=== PATIENT | male | born 1970 | race African-American/Black ===

== ENCOUNTER 2017-09-16 18:20 | Emergency (ER) | payer BC ==
[~2017-09-16 18:20] MED LIST: ISOVUE-370 76%-LOCM 1 ML ONE
[2017-09-16 19:03] LABS: #Eosinphils 0.2 thou/uL (0.0-0.7); #Lymphocytes 2.5 thou/uL (1.20-3.40); #Monocytes 0.4 thou/uL (0.11-0.59); %Basophils 0.6 % (0.0-1.0); %Eosinophils 3.4 % (0.0-10.0); %Lymphocytes 40.4 % (21.0-51.0); %Monocytes 6.3 % (0.0-10.0); %Neutrophils 49.3 % (42.0-75.0); Hemoglobin 14.9 g/dL (14.0-18.0); Mean Corpuscular HGB CONC 34.7 g/dL (32.0-36.0); Mean Corpuscular Hemoglobin 32.7 pg (27.0-31.0); Mean Corpuscular Volume 94.3 fl (80.0-94.0); Mean Platelet Volume 6.8 fL (7.4-10.4); Platelet Count 283 thou/uL (130-400); Red Blood Cell (RBC) Count 4.54 mill/uL (4.70-6.10); White Blood Cell (WBC) Count 6.1 thou/uL (4.8-10.8)
[2017-09-16 19:23] LABS: ALT (SGPT) 15 U/L (8-55); AST (SGOT) 17 U/L (5-34); Albumin 4.1 g/dL (3.5-5.0); Alkaline Phosphatase 70 U/L (40-150); Anion Gap 12 mmol/L (10-20); BUN (Urea Nitrogen) 11 mg/dL (8.9-20.6); Bilirubin, Total 1.3 mg/dL (0.2-1.2); Calc. Creatinine Clearance 0 mL/min (70-130); Calcium 9.4 mg/dL (7.8-10.44); Carbon Dioxide 29 mmol/L (22-29); Chloride 103 mmol/L (98-107); Estimated GFR-MDRD Greater than 90; Globulin 3.3 g/dL (2.4-3.5); Glucose 70 mg/dL (70-105); Protein, Total 7.4 g/dL (6.0-8.3); Sodium 140 mmol/L (136-145)
[2017-09-16 20:53] LABS: Bilirubin Negative (Negative); Blood, Urine Moderate (Negative); Clarity CLEAR (Clear); Glucose, Urine (Dipstick) Negative (Negative); Leukocyte Trace (Negative); Nitrite Negative (Negative); Protein, Urine (Dipstick) Negative (Neg-Trace); Specific Gravity, Urine 1.023 (1.002-1.036)
[2017-09-16 20:54] LABS: Bacteria/HPF None Seen HPF (None Seen); Hyaline Casts/LPF 0-3 HYALINE CAST LPF (0-3 Hyaline); Pathc Cast-AUWi Flag 0.14 (0-2.49); Squamous Epithelial 0-3 HPF (0-3); WBC/HPF 0-3 HPF (0-3)
[2017-09-16] MEDS ORDERED: Ondansetron ODT 4 MG TAB ONE (21:57)
--- NOTE | 2017-09-16 22:46 | CT ---
CT ABDOMEN AND PELVIS WITH IV CONTRAST: HISTORY: Right lower quadrant abdominal pain. COMPARISON: Noncontrast CT abdomen and pelvis from 05/08/2016. TECHNIQUE: Multiple axial tomograms obtained through the abdomen and pelvis with IV enhancement. FINDINGS: The lung bases are clear. The liver, spleen, and pancreas are unremarkable. The adrenal glands appear normal. The kidneys are unremarkable. No hydronephrosis. The urinary bladder is unremarkable. Small bowel loops are of normal caliber. Appendix appears normal. Stool and gas scattered throughou t the colon. Aorta normal caliber. Prostate mildly prominent. IMPRESSION: Small bowel shows mild fluid filled distention, which is nonspecific and could represent enteritis. The appendix appears normal. There is no evidence of acute abnormality. POS: [facility]
== END 2017-09-17 00:08 | disposition home or self-care (01) ==
LOC: ERS 18:20
DX: K52.9 Noninfective gastroenteritis and colitis, unspecified (principal); I10 Essential (primary) hypertension; F17.210 Nicotine dependence, cigarettes, uncomplicated; Z71.6 Tobacco abuse counseling
CPT/HCPCS: 36415; 74177; 80053; 81003; 81015; 83690; 85025; 96360; 99406; Q0162

== ENCOUNTER 2020-09-08 11:27 | Emergency (ER) | payer SELFPAY ==
[2020-09-08] MEDS ORDERED: HYDROcodone/Acetaminophen 5/325 mg Tablet ONE (11:42)
[2020-09-08] MEDS ORDERED: Ketorolac Tromethamine 30 MG/ML VIAL ONE (12:04)
== END 2020-09-08 12:46 | disposition home or self-care (01) ==
LOC: ERS 11:27
DX: M47.26 Other spondylosis with radiculopathy, lumbar region (principal); I10 Essential (primary) hypertension
CPT/HCPCS: 72100; 96372; J1885

== ENCOUNTER 2021-06-02 22:37 | Emergency (ER) | payer SELFPAY ==
[2021-06-02] MEDS ORDERED: Oxymetazoline HCl 0.05% (30 ML BOT) ONE (23:52)
== END 2021-06-03 00:42 | disposition home or self-care (01) ==
LOC: ERS 22:37
DX: R04.0 Epistaxis (principal); I10 Essential (primary) hypertension
CPT/HCPCS: 99283

== ENCOUNTER 2023-01-22 14:08 | Emergency (ER) | payer SELFPAY ==
[2023-01-22 15:15] LABS: Bilirubin Negative (Negative); Blood, Urine Moderate (Negative); Glucose, Urine (Dipstick) Negative (Negative); Ketone, Urine Negative (Negative); Leukocyte Trace (Negative); Nitrite Negative (Negative); Protein, Urine (Dipstick) Negative (Neg-Trace)
[2023-01-22 15:16] LABS: Clarity Hazy (Clear)
[2023-01-22 15:29] LABS: Bacteria/HPF Rare-Few HPF (None Seen); CAUTI Indications for Culture Dysuria,urgency,freq; RBC/HPF 0-3 HPF (0-3); Squamous Epithelial None Seen HPF (0-3)
[2023-01-22 15:30] LABS: Urine Culture Reflex No No
[2023-01-22] MEDS ORDERED: Lidocaine 1% PF 5 ML VIAL ONE (15:44)
[2023-01-22] MEDS ORDERED: Acetaminophen 500 MG TAB ONE (15:44)
[2023-01-22] MEDS ORDERED: cefTRIAXone (ROCEPHIN) 500 MG VIAL ONE (15:44)
[2023-01-22] MEDS ORDERED: Ibuprofen 200 MG TAB ONE (15:44)
[2023-01-23 13:08] LABS: Chlam.trachomatis by PCR,Urine Not Detected (NotDetected); GC N.gonorrhoeae PCR,UrineVOID DETECTED (NotDetected)
== END 2023-01-22 16:08 | disposition home or self-care (01) ==
LOC: ERS 14:08
DX: N34.1 Nonspecific urethritis (principal); I10 Essential (primary) hypertension
CPT/HCPCS: 81001; 87491; 87591; 96372; 99283; J0696